=== PATIENT | female | born 1985 | race Caucasian/White ===

== ENCOUNTER 2019-07-22 16:51 | Emergency (ER) | payer OTHER, SELFPAY ==
--- NOTE | 2019-07-22 16:54 | ED.GENADULT ---
HPI - General Adult General Chief complaint: Upper Respiratory Infection Stated complaint: fever/sore throat/cough Time Seen by Provider: 07/22/19 16:54 Source: patient Mode of arrival: ambulatory Limitations: no limitations History of Present Illness HPI narrative: 34-year-old female patient presents to the [facility] with complaints of cold symptoms that started today. Patient states she has had some low-grade fevers and a scratchy throat and decided she come and get checked out states that she was bringing her kids in to be swabbed for strep. Denies any runny nose, chest pain, shortness breath, abdominal pain, nausea, vomiting or diarrhea. Patient denies any or breast-feeding at this time. Related Data Allergies Allergy/AdvReac Type Severity Reaction Status Date / Time No Known Allergies Allergy Mild Verified 07/22/19 17:03 Review of Systems Review of Systems: Narrative: CONSTITUTIONAL: Positive subjective low-grade fever, denies chills, or sweats. EYES: Denies visual changes, redness, or discharge. ENT: Denies rhinorrhea, congestion, positive sore throat, denies otalgia. CARDIOVASCULAR: Denies chest pain, palpitations, or edema. RESPIRATORY: Denies cough or dyspnea. GASTROINTESTINAL: Denies abdominal pain, nausea, vomiting, or diarrhea. GENITOURINARY: Denies dysuria or hematuria. SKIN: Denies rash or itching. MUSCULOSKELETAL: Denies back pain, joint pain, or myalgia. NEUROLOGIC: Denies headache, numbness, or weakness. PSYCHIATRIC: Denies anxiety or depression. [facility] Family History Family History Mother Hypertension Grandparent Family history of malignant neoplasm of breast Social History Social History Smoking status: Never smoker Second hand tobacco smoke exposure: No Alcohol intake: never Gender identity (if verbalized by the patient): Female Comments At the time of my signature I agree with nursing past medical history, surgical, social, and family history. There is no relevant family history pertinent to the presenting complaint. Exam Narrative: Exam Narrative: GENERAL: Well-appearing, well-nourished, and in no acute distress. HEAD: Normocephalic, atraumatic. No tenderness noted to frontal maxillary sinuses on palpation EYES: PERRLA and EOMI. ENT: Nares clear, no rhinorrhea or epistaxis. Mucous membranes moist. Posterior pharynx with slight erythema but no tonsil enlargement no exudates or lesions present. NECK: Supple. No lymphadenopathy CHEST: Clear to auscultation. No respiratory distress. HEART: Regular rate and rhythm. No murmur heard. Normal peripheral pulses. ABDOMEN: Soft, nontender, nondistended, normal active bowel sounds. EXTREMITIES: Normal range of motion. No edema. SKIN: Warm, dry, no rash. NEURO: No focal deficits. Alert and oriented x3. Course Vital Signs Vital signs: Vital Signs Temperature 37.4 C 07/22/19 17:00 Pulse Rate 94 07/22/19 17:00 Respiratory Rate 18 07/22/19 17:00 Blood Pressure 130/85 07/22/19 17:00 Pulse Oximetry 100 07/22/19 17:00 Temperature 37.4 C 07/22/19 17:00 Pulse Rate 94 07/22/19 17:00 Respiratory Rate 18 07/22/19 17:00 Blood Pressure 130/85 07/22/19 17:00 Pulse Oximetry 100 07/22/19 17:00 Vital signs reviewed. The patient has been informed that they may have pre-hypertension or Hypertension based on a BP reading in the department. I recommend that the patient call the primary care provider listed on their discharge instructions or a physician of their choice this week to arrange follow up for further evaluation of possible pre-hypertension or Hypertension Medical Decision Making Differential Diagnosis Differential Diagnosis: Differential diagnosis: Allergic rhinitis, chronic sinusitis, tonsillitis, acute sinusitis, infectious mononucleosis, seasonal influenza, pertussis, diphtheria, meningococcal dise
[2019-07-22 17:00] VITALS: BP 130/85; PULSE 94; RESP 18; TEMP 37.4; O2SAT 100
== END 2019-07-22 17:19 | disposition home or self-care (01) ==
LOC: EXPTROY 16:54
PROVIDERS: Emergency Provider Nurse Practitioner Family
DX: J02.0 Streptococcal pharyngitis (principal)
CPT/HCPCS: 87880; 99213; G0463

== ENCOUNTER 2020-10-14 09:04 | Outpatient (CLI) | payer OTHER, SELFPAY ==
--- NOTE | 2020-10-29 14:46 | WPDHOMESLEEP ---
Sleep Study - Home Unattended Date of Study: 10/14/20 Ordering Provider: Pema Arce, Interpreting Provider: Patience Short MD Home Sleep Study Type: Apnea Link Air Height: 1.55 m Weight: 98.883 kg Body Mass Index: 41.1 Neck Circumference (inches): 15 [place]: 14 Reason for Sleep Study Poor quality sleep, non-refreshing sleep with night time awakenings Sleep History Clarisa Graham is a 35 year old female with poor quality sleep. She has migraine headaches, takes topiramate and rizatriptan for this. She does not feel rested on waking. She frequently wakes up in the middle of the night. She sleeps with her mouth open. She wakes up suddenly and has a dry mouth. This has been going on for more than 2 years. She has difficulty falling asleep, she wakes up during the night and wakes up in the regroover hours. There is a family history with her mother and sister having a diagnosis of sleep apnea. She occasionally awakens from sleep feeling short of breath. She frequently awakens at night with heartburn, belching or coughing. She has been told that she snores and it is very common for this to be loud enough that others complain about it. She constantly has trouble sleep with a cold. She occasionally wakes up gasping for breath at night, occasionally has breathing problems at night observed by others. She constantly sweats excessively at night and notices her heart pounding or beating irregularly night. She never falls asleep during the day. She rarely falls asleep involuntarily. She occasionally falls asleep while driving but she does not drive often. She does not fall asleep while exerting physical effort. She does not have loss of muscle tone with strong emotion. She occasionally has daytime difficulties due to excessive sleepiness. 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 She rarely feels paralyzed on waking or falling asleep. She rarely has vivid dreamlike scenes upon awakening or falling asleep. She occasionally feels afraid to go to sleep. She frequently has nightmares. She occasionally remembers her dreams. She constantly has racing thoughts. She occasionally feels sad or depressed. She constantly has anxiety and muscular tension. She occasionally notices parts of her body jerking. She occasionally kicks at night and has crawling and aching feelings in her legs. She occasionally has leg pain at night. She occasionally has morning jaw pain. She rarely grinds her teeth during sleep. She frequently is bothered by pain during the day. She frequently is awakened by pain at night. She constantly wakes up feeling stiff in the morning with sore or achy muscles and pain in the neck and spine. She has depression, daily morning headaches, dizziness, fatigue, memory problems, concentration problems, and lack of libido. Normal bedtime is between 10:00 p.m. and 12 midnight, taking 2 hours to fall asleep. She typically wakes up 3 or more times during the night. She will go to urinate, stretch and reposition. It may take her a long while to return to sleep. She wakes in the morning by 6:00 a.m.. She estimates getting 5 hours of interrupted sleep at night. On the weekends, she has the same bedtime between 10:00 p.m. and midnight, however she gets recovery sleep, waking at 10:00 a.m. She does not generally take naps in the afternoon or evening. A short nap is not refreshing. She is usually drowsy in the morning for 3 hours or longer. She feels better in the evening compared other times of day. Habits: Never smoked tobacco. No caffeine, alcohol, or recreational drugs. [facility] Past Medical History Medical History (Updated 10/29/20 @ 14:56 by Patience Short MD) Anxiety and depression Heartburn History of COVID-19 Migraine headache Seasonal allergies Surgical History Surgical History (Updated 10/29/20 @ 14:52 by Patience Short MD) Previous section x 5 S/P partial hysterectomy Family History Family History
[2020-10-29 15:07] VITALS: BMI 41.1
== END 2020-10-15 11:56 | disposition home or self-care (01) ==
LOC: ANHCSM 09:05
PROVIDERS: Visit Provider Family Medicine
DX: G47.30 Sleep apnea, unspecified (principal)
CPT/HCPCS: 95806

== ENCOUNTER 2020-11-25 08:30 | Outpatient (CLI) | payer OTHER, SELFPAY ==
[2020-11-25 09:04] LABS: EDCOVIDSCREEN Negative (Negative)
== END 2020-11-25 08:31 | disposition home or self-care (01) ==
PROVIDERS: PCP Family Medicine; Visit Provider Internal Medicine Critical Care Medicine
DX: Z01.812 Encounter for preprocedural laboratory examination (principal); Z20.822 Contact with and (suspected) exposure to COVID-19
CPT/HCPCS: 87426; C9803

== ENCOUNTER 2020-11-25 08:39 | Outpatient (CLI) | payer OTHER, SELFPAY ==
--- NOTE | 2020-12-15 08:07 | WPDSLEEPSTUD ---
Sleep Study Date of Study: 11/25/20 Ordering Provider: Pema Arce, Interpreting Physician: Patience Short MD Sleep Study Type: Polysomnogram Height: 1.55 m Weight: 97.069 kg Body Mass Index: 40.4 Neck Circumference (inches): 17 [place]: 9 Reason for Sleep Study Hypersomnia, morning headaches, migraine headaches home sleep test 10/14/2020 with apnea-hypopnea index 4.2, lowest desaturation 88%; she presents for further evaluation. Sleep History Clarisa Graham is a 35 year old female with poor quality sleep. She has migraine headaches, takes topiramate and rizatriptan for this. She does not feel rested on waking. She frequently wakes up in the middle of the night. She sleeps with her mouth open. She wakes up suddenly and has a dry mouth. This has been going on for more than 2 years. 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 There is a family history of sleep disorders with her mother and sister having a diagnosis of sleep apnea. She occasionally awakens from sleep feeling short of breath. She frequently awakens at night with heartburn, belching or coughing. She has been told that she snores and it is very common for this to be loud enough that others complain about it. She constantly has trouble sleep with a cold. She occasionally wakes up gasping for breath at night, occasionally has breathing problems at night observed by others. She constantly sweats excessively at night and notices her heart pounding or beating irregularly night. She never falls asleep during the day. She rarely falls asleep involuntarily. She occasionally falls asleep while driving but she does not drive often. She does not fall asleep while exerting physical effort. She does not have loss of muscle tone with strong emotion. She occasionally has daytime difficulties due to excessive sleepiness. 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 She rarely feels paralyzed on waking or falling asleep. She rarely has vivid dreamlike scenes upon awakening or falling asleep. She occasionally feels afraid to go to sleep. She frequently has nightmares. She occasionally remembers her dreams. She constantly has racing thoughts. She occasionally feels sad or depressed. She constantly has anxiety and muscular tension. She occasionally notices parts of her body jerking. She occasionally kicks at night and has crawling and aching feelings in her legs. She occasionally has leg pain at night. She occasionally has morning jaw pain. She rarely grinds her teeth during sleep. She frequently is bothered by pain during the day. She frequently is awakened by pain at night. She constantly wakes up feeling stiff in the morning with sore or achy muscles and pain in the neck and spine. She has depression, daily morning headaches, dizziness, fatigue, memory problems, concentration problems, and lack of libido. Normal bedtime is between 10:00 p.m. and 12 midnight, taking 2 hours to fall asleep. She typically wakes up 3 or more times during the night. She will go to urinate, stretch and reposition. It may take her a long while to return to sleep. She wakes in the morning by 6:00 a.m.. She estimates getting 5 hours of interrupted sleep at night. On the weekends, she has the same bedtime between 10:00 p.m. and midnight, however she gets recovery sleep, waking at 10:00 a.m. She does not generally take naps in the afternoon or evening. A short nap is not refreshing. She is usually drowsy in the morning for 3 hours or longer. She feels better in the evening compared other times of day. Habits: Never smoked tobacco. No caffeine, alcohol, or recreational drugs. [facility] Past Medical History Medical History (Updated 12/15/20 @ 08:35 by Patience Short MD) Anxiety and depression Heartburn History of COVID-19 Migraine headache Seasonal allergies Surgical History Surgical History (Updated 10/29/20 @ 14:52 by Jin Franklin
[2020-12-15 08:10] VITALS: BMI 40.4
== END 2020-11-26 05:32 | disposition home or self-care (01) ==
LOC: ANHCSM 08:41
PROVIDERS: PCP Family Medicine; Visit Provider Family Medicine
DX: G47.10 Hypersomnia, unspecified (principal); R06.83 Snoring; G25.81 Restless legs syndrome
CPT/HCPCS: 87426; 95810; C9803

== ENCOUNTER 2021-01-14 13:29 | Emergency (ER) | payer OTHER, SELFPAY ==
[2021-01-14 13:41] VITALS: BP 124/74; PULSE 89; RESP 20; TEMP 36.4; O2SAT 100
--- NOTE | 2021-01-14 13:53 | ED.GENADULT ---
HPI - General Adult General Chief complaint: Shortness of Breath/Dyspnea Stated complaint: Difficulty breathing, elevated blood pressure Time Seen by Provider: 01/14/21 13:54 Source: patient and RN notes reviewed Mode of arrival: ambulatory Limitations: no limitations History of Present Illness HPI narrative: 36-year-old female presents with complaints of intermittent elevated blood pressure, elevated heart rate, and dizziness after receiving a injection of Amovig symptoms for the past 12 days. Garcia reports she received Amovig (due to history of migraines) from her neurologist office on 01/01/21 and symptoms started on 01/02/21 in which she called and instructed to call her PMD for further care. Appointment scheduled with PMD on 01/13/21 in which was cancelled 1 hour before her arrival per Clarisa. Clarisa reports increasing symptoms which includes elevated blood pressure as high as 146/51 and heart rate of 160 on 01/13/21 while sitting per Clarisa. No treatment. Exacerbating factors consist of changing position too fast, and certain movements. Relieving factors are sitting still. Denies ear pain, ear itching, ear trauma, trauma to head, syncopal episodes, altered vision, altered speech, confusion, or seizure activity. Denies numbness or tingling in extremities. Denies chest pain or dyspnea. Denies URI symptoms, fever, or chills. Tolerating p.o. intake well. Remains active. The patient reports she was diagnosed with COVID-08 August 2020. The patient reports she is not waiting for the results of a COVID-19 lab test. The patient reports she does not have weakness, fatigue, or myalgia. The patient reports he does not have a new or worsening cough or shortness of breath. The patient reports he does not have any rhinorrhea, congestion, loss of taste or smell, sore throat, and diarrhea. Denies recent traveling. Denies concerns for COVID-19 or exposures. At this time, the patient is not suspected of having COVID-19. Some parts of this dictation were generated by voice recognition software and may contain typographical and/or grammatical inaccuracies. Related Data Home Medications Medication Instructions Recorded Confirmed rizatriptan 10 mg PO .PRN PRN 01/14/21 01/14/21 topiramate 01/14/21 Allergies Allergy/AdvReac Type Severity Reaction Status Date / Time No Known Allergies Allergy Mild Verified 01/14/21 14:01 Review of Systems Review of Systems: CONSTITUTIONAL: Denies fever, chills, sweats. EYES: Denies visual changes, redness, discharge. ENT: Denies rhinorrhea, congestion, sore throat, otalgia. CARDIOVASCULAR: Denies chest pain, edema. Complaints of intermittent elevated blood pressure and palpitations. RESPIRATORY: Denies dyspnea, wheezing, cough. GASTROINTESTINAL: Denies abdominal pain, nausea, vomiting, diarrhea. SKIN: Denies lesions, itching, drainage. MUSCULOSKELETAL: Denies acute back pain, joint pain, or myalgia. NEUROLOGIC: Denies numbness or focal weakness. Complaints of intermittent dizziness. PSYCHIATRIC: Denies anxiety or depression. All systems reviewed & are unremarkable except as noted in HPI and below. [facility] Past Medical History Medical History Anxiety and depression Heartburn History of COVID-19 Hypersomnolence Maternal blood transfusion occurred with one of the per Clarisa Migraine headache Obesity Restless legs syndrome (RLS) Seasonal allergies Snoring Surgical History Surgical History Previous section x 5 S/P partial hysterectomy Family History Family History Mother Hypertension Grandparent Family history of malignant neoplasm of breast Social History Social History Smoking status: Never smoker Tobacco type: cigarettes Second h
--- NOTE | 2021-01-14 14:09 | ECG_ITS ---
Measurements Intervals [place] Rate: 89 P: 39 FL: 150 QRS: 45 QRSD: 86 T: 24 QT: 346 QTc: 423 Interpretive Statements SINUS RHYTHM BORDERLINE ST-T WAVE ABNORMALITY- ANTEROLAT/INF LEADS BASELINE ARTIFACT- II, III, AVF BORDERLINE ECG Electronically Signed On 01-14-2021 15:03:40 CDT by Pierre Yancey D.O.
[2021-01-14 14:22] VITALS: BP 115/70; PULSE 83
[2021-01-14 14:23] LABS: Glucose Point of Care 89 mg/dl (65-105)
--- NOTE | 2021-01-14 14:30 | PC.NURSE ---
1345-Pt denies lightheadedness at this time. Denies heart racing. No objective signs of dyspnea. Pt reports discomfort to mid upper chest with deep inspiration during exam.
[2021-01-14 14:32] VITALS: BP 115/76; BP 123/81; PULSE 103; PULSE 90
== END 2021-01-14 15:00 | disposition home or self-care (01) ==
PROVIDERS: Emergency Provider Nurse Practitioner Family; PCP Family Medicine
DX: F41.9 Anxiety disorder, unspecified (principal); R12 Heartburn; Z86.16 Personal history of COVID-19; E66.9 Obesity, unspecified; Z68.41 Body mass index [BMI] 40.0-44.9, adult; G25.81 Restless legs syndrome
CPT/HCPCS: 82948; 93005; 99213; G0463

== ENCOUNTER 2021-02-23 08:22 | Observation (INO) | payer OTHER, SELFPAY ==
[2021-02-23] VITALS (19 sets, daily range): BP systolic 100–120; BP diastolic 60–80; PULSE 90–122; RESP 18–33; TEMP 36.8–37.4; O2SAT 97–100; BMI 38.3
--- NOTE | ~2021-02-23 | CT_ITS ---
EXAMINATION: CTA chest PE protocol DATE: 02/23/2021 11:26 INDICATION: Shortness of breath for 2 weeks. Cough, fever TECHNIQUE: Computed tomography angiography (CTA) of the chest was performed with 100 mL Omnipaque-350 intravenous contrast timed to evaluate the pulmonary arteries. Coronal maximum intensity projection 3D-reconstructions were created by the technologist. Automated exposure control and iterative reconst ruction technique were employed. Exam dose: 472.97 mGy-cm total exam DLP. COMPARISON: 02/2021 2 view chest FINDINGS: There is diagnostic contrast enhancement of the pulmonary arteries. There is prominent pulm onary embolism involving the left lower lobe. No thoracic aortic aneurysm or hilar or mediastinal mass lesion. There are patchy infiltrates scattered in both lungs, involving all lobes, most prominent in the lowe r lobes, left greater than right, consistent with bilateral pneumonia, likely Covid 19. There is mild hilar and mediastinal lymphadenopathy, likely reactive due bilateral pneumonia. Normal heart size. No pericardial or pleural effusion. No pneumothorax. Small sliding hiatal hernia. Included skeletal structures are unremarkable; no suspicious osteolytic or osteoblastic lesions. IMPRESSION: Left lower lobe pulmonary embolism Bilateral pneumonia, likely Covid 19, with probable reactive hilar and mediastinal adenopathy Robin telephoned the report including left lower lobe pulmonary embolism on 02/23/2021 at 1143 hours to emergency room Physician [employer]er Teresa. Reviewed, dictated and finalized at [facility]. Reviewed, dictated and finalized at location [facility]. IMPRESSION: Left lower lobe pulmonary embolism Bilateral pneumonia, likely Covid 19, with probable reactive hilar and mediasti nal adenopathy Robin telephoned the report including left lower lobe pulmonary embolism on 02/23 at 1143 hours to emergency room Physician Marine [employer] Assembler Teresa.
--- NOTE | ~2021-02-23 | XR_ITS ---
EXAMINATION: XR chest 2V DATE: 02/23/2021 09:02 INDICATION: Shortness of breath, cough and left-sided chest pain. TECHNIQUE: PA and lateral views of the chest were obtained. COMPARISON: Chest radiograph dated 09/02/2013 FINDINGS: Bilateral peripheral and lower lung predominant scattered patchy airspace opacities consistent with p neumonia. No pleural effusion or pneumothorax. The cardiomediastinal silhouette is normal. Mild thora cic spondylosis. IMPRESSION: 1. Patchy bilateral lung disease suspicious for pneumonia with appearance typical for COVID. Reviewed, dictated and finalized at location [facility]. IMPRESSION: 1. Patchy bilateral lung disease suspicious for pneumonia with appearance typic al for COVID.
--- NOTE | ~2021-02-23 | US_ITS ---
EXAMINATION: US venous doppler [facility] EXAM DATE: 02/23/2021 17:42 INDICATION: Pulmonary embolism. TECHNIQUE: Multiple grayscale, color flow and Doppler images of the lower extremity deep venous syste ms bilaterally were obtained and reviewed. Comparison is made to prior examination from 01/29/2014. FINDINGS: Right side: The right common femoral, femoral and profunda veins demonstrate normal color flow, respi ratory variation, augmentation and compressibility. Compressibility, color flow confirmed within the right popliteal, posterior tibial, peroneal, and greater saphenous veins. Left side: The left common femoral, femoral and profunda veins demonstrate normal color flow, respira tory variation, augmentation and compressibility. Compressibility, color flow confirmed within the l eft popliteal, posterior tibial, peroneal, and greater saphenous veins. IMPRESSION: 1. No lower extremity deep venous thrombosis bilaterally. Reviewed, dictated and finalized at location A.
--- NOTE | 2021-02-23 08:41 | ECG_ITS ---
Measurements Intervals [place] Rate: 107 P: 44 FL: 142 QRS: 37 QRSD: 89 T: -86 QT: 319 QTc: 427 Interpretive Statements SINUS TACHYCARDIA BORDERLINE ST-T WAVE ABNORMALITY- DIFFUSE LEADS BASELINE ARTIFACT- I, III, AVR, AVL, AVF, V3-V6 ABNORMAL ECG Electronically Signed On 02-23-2021 11:26:53 CDT by Pierre Yancey D.O.
--- NOTE | 2021-02-23 08:49 | PC.NURSE ---
Pt resting on stretcher, awaiting xray
[2021-02-23 08:54] LABS: Basophils Percent Auto 0.3 % (0.2-1.2); Eosinophils Absolute Auto 0.1 K/mm3 (0-0.3); Eosinophils Percent Auto 0.9 % (0-4.4); Hematocrit 38.4 % (37.0-47.0); Hemoglobin 12.6 g/dL (12.0-15.0); Immature Granulocyte Absolute 0.04 K/mm3 (0.00-0.031); Immature Granulocyte Percent A 0.4 % (0-0.5); Lymphocytes Absolute Auto 2.93 K/mm3 (0.9-3.2); Lymphocytes Percent Auto 30.1 % (18.3-44.2); Mean Corpuscular HGB Conc 32.8 g/dl (32-36); Mean Corpuscular Hemoglobin 28.4 pg (26-34); Mean Corpuscular Volume 86.5 fl (80-100); Mean Platelet Volume 9.1 fl (7.4-10.4); Monocytes Absolute Auto 0.8 K/mm3 (0.1-0.6); Monocytes Percent Auto 7.8 % (2.6-8.5); Neutrophils Absolute Auto 5.9 K/mm3 (1.3-6.7); Neutrophils Percent Auto 60.5 % (45.5-73.1); Platelet Count Result 390 k/mm3 (150-375); Red Blood Count 4.44 M/mm3 (4.2-5.4); Red Cell Distribution Width 12.8 % (11.5-14.5); White Blood Count 9.7 K/mm3 (4.5-10.0)
[2021-02-23 09:02] LABS: Anion Gap 9 mmol/L (8-16); Blood Urea Nitrogen 7 mg/dL (7-17); Calcium 9.8 mg/dL (8.4-10.2); Carbon Dioxide 23 mmol/L (22-30); Chloride 106 mmol/L (98-107); Estimated CRCL calculation 112 ml/min; Estimated Glomerular Filt Rate > 60; Glucose 128 mg/dL (65-110); Potassium 3.4 mmol/L (3.4-5.0); Sodium 138 mmol/L (137-145)
--- NOTE | 2021-02-23 09:46 | PC.NURSE ---
provider at bedside
[2021-02-23 09:48] LABS: INR 1.1; Prothrombin Time 14.4 Seconds (11.1-14.7)
[2021-02-23 09:49] LABS: Partial Thromboplastin Time 27.6 SECONDS (22.3-36.8)
[2021-02-23 09:57] LABS: Alanine Aminotransferase 25 U/L (4-35); Albumin Level 4.1 g/dL (3.5-5.1); Alkaline Phosphatase 60 U/L (38-126); Aspartate Amino Transferase 25 U/L (14-36); Bilirubin,Total 0.6 mg/dL (0.2-1.3)
[2021-02-23] MEDS: ALBUTEROL SULFATE (*SP) AEROSOL 1 PUFF 4 PUFF INHALATION (09:58)
[2021-02-23 10:03] LABS: NT Pro B Type Natriuretic Pept 30 pg/mL (5-100)
--- NOTE | 2021-02-23 10:06 | ED.SOB ---
HPI - SOB/Dyspnea General Chief Complaint: Shortness of Breath/Dyspnea <GERTRUDE Lopez Last Filed: 02/23/21 12:51> Stated Complaint: difficulty breathing <GERTRUDE Lopez Last Filed: 02/23/21 12:51> Time Seen by Provider: 02/23/21 09:09 <GERTRUDE Lopez Last Filed: 02/23/21 12:51> Source: patient <GERTRUDE Lopez Last Filed: 02/23/21 12:51> Mode of arrival: ambulatory <GERTRUDE Lopez Last Filed: 02/23/21 12:51> Limitations: no limitations <GERTRUDE Lopez Last Filed: 02/23/21 12:51> History of Present Illness HPI Narrative: This is a 36-year-old female that presents to the emergency department for shortness of breath since yesterday. Reports over the last couple of weeks she has been having fevers, cough, congestion. Reports she still has a lingering cough. Yesterday she also started to feel short of breath. She gets pain in the left side of her chest, mostly with coughing. She has not been Covid vaccinated. Denies recent travel or surgery, or lower extremity edema. <GERTRUDE Lopez Last Filed: 02/23/21 12:51> Related Data Home Medications: Home Medications Medication Instructions Recorded Confirmed rizatriptan 10 mg PO .PRN PRN 01/14/21 02/02/21 topiramate 01/14/21 02/02/21 <GERTRUDE Lopez Last Filed: 02/23/21 12:51> Allergies/Adverse Reactions: Allergies Allergy/AdvReac Type Severity Reaction Status Date / Time No Known Allergies Allergy Mild Verified 02/02/21 14:09 <GERTRUDE Lopez Last Filed: 02/23/21 12:51> Review of Systems Review of Systems: CONSTITUTIONAL: Reports fever ENT: Reports rhinorrhea, congestion CARDIOVASCULAR: Reports chest pain. Denies edema. RESPIRATORY: Reports cough and dyspnea. <GERTRUDE Lopez Last Filed: 02/23/21 12:51> All systems reviewed & are unremarkable except as noted in HPI and below <Teresa Luong PA-C - Last Filed: 02/23/21 12:51> [facility] Past Medical History Medical History: Medical History Anxiety and depression Heartburn History of COVID-19 Hypersomnolence Maternal blood transfusion occurred with one of the per Clarisa Migraine headache Obesity Restless legs syndrome (RLS) Seasonal allergies Snoring <GERTRUDE Lopez Last Filed: 02/23/21 12:51> Surgical History Surgical History: Surgical History Previous section x 5 S/P partial hysterectomy <GERTRUDE Lopez Last Filed: 02/23/21 12:51> Family History Family History: Family History Mother Hypertension Grandparent Family history of malignant neoplasm of breast <GERTRUDE Lopez Last Filed: 02/23/21 12:51> Social History Social History: Social History Smoking status: Never smoker Second hand tobacco smoke exposure: No Alcohol intake: never Substance use: never Substance use type: does not use Gender identity (if verbalized by the patient): Female Sexual Orientation (if Verbalized by the Patient): Straight or Heterosexual <GERTRUDE Lopez Last Filed: 02/23/21 12:51> Exam Narrative: GENERAL: Well-appearing, obese, and in no acute distress. HEAD: Normocephalic, atraumatic. EYES: EOMI. ENT: Nares clear, no rhinorrhea or epistaxis. Mucous membranes moist. Oropharynx without tonsillar hypertrophy exudate or other lesions. Bilateral TMs pearly [place] non-bulging NECK: Supple. No adenopathy or masses. CHEST: Clear to auscultation. No respiratory distress. No wheezes rales or rhonchi HEART: Regular rate and rhythm. No murmur heard. Normal peripheral pulses. EXTREMITIES: Normal range of motion. No edema. SKIN: Warm, dry, no rash. NEURO: No focal deficits. Alert and
[2021-02-23 10:16] LABS: Troponin I < 0.012 ng/mL (0.000-0.034)
[2021-02-23 10:58] LABS: D Dimer 1.55 ug/mL (<0.48)
--- NOTE | 2021-02-23 11:03 | PC.NURSE ---
Report given to BREANN Liang at this time. She has assumed pt care. Pt resting on stretcher, calm and cooperative, a&ox4.
[2021-02-23] MEDS: ENOXAPARIN 100 MG/ML SYRINGE 90 MG SUB-Q ×2 (12:21→22:03)
--- NOTE | 2021-02-23 14:30 | PM.IMHP ---
H&P: HPI History of Present Illness Date/Time: 02/23/21 14:30 Chief Complaint: Shortness of breath. Narrative: This is a 36-year-old female with migraine headaches who presented to the emergency department earlier today from home for evaluation of shortness of breath. She has not felt well since February 05 when she developed a ?full-blown sinus infection? with a mild nonproductive cough as well as fevers up to 102? F. Since that time she has had some mild shortness of breath with exertion though her shortness of breath has gotten quite a bit worse over the past 2 days. Additionally she has developed left-sided pleuritic chest pain in the last day or so. In the emergency department she was found to have a left lower lobe pulmonary embolism as well as bilateral pneumonia felt to be secondary to COVID-19, and in fact her SARS-CoV-2 PCR did come back positive this evening. She had COVID earlier on in the year and has not been vaccinated. Her 4 children have had similar symptoms though they have thus far attributed them to hayfever causing sinus infections. No syncope or near syncope. She denies exertional chest pain. No palpitations but her heart has been beating a bit faster than usual. She denies nausea, vomiting, and diarrhea. No lower extremity edema, calf pain, or tenderness. Review of Systems Review of Systems: Twelve systems were reviewed with pertinent positives and negatives as per HPI. Except as documented, all other systems were reviewed and are negative. [facility] Past Medical History Medical History (Updated 02/23/21 @ 20:44 by Cailin Luo PA-C) Anxiety and depression Heartburn History of COVID-19 Migraine headache Restless legs syndrome (RLS) Seasonal allergies Surgical History Surgical History (Updated 02/23/21 @ 20:41 by Cailin Luo PA-C) History of partial hysterectomy Previous section x 5 Family History Family History Mother Hypertension Grandparent Family history of malignant neoplasm of breast Social History Social History (Updated 02/23/21 @ 20:42 by Cailin Luo PA-C) Social History: Surrogate decision maker: Rashida Tay, sister. Code status: Full code. Smoking status: Never smoker Second hand tobacco smoke exposure: No Alcohol intake: never Substance use: never Substance use type: does not use Additional living arrangements comments: Lives in [place] with her 4 children. Additional occupation/education comments: [employer] for [employer]. Meds Home Medications and Allergies Home Medications Medication Instructions Recorded Confirmed Type topiramate 75 mg PO BID 01/14/21 02/23/21 History Allergies Allergy/AdvReac Type Severity Reaction Status Date / Time No Known Allergies Allergy Mild Verified 02/02/21 14:09 Vital Signs Vital Signs - 24 hr 02/23/21 08:37 02/23/21 08:38 02/23/21 08:42 Temperature Pulse Rate 107 H Respiratory Rate Blood Pressure 116/72 Pulse Oximetry 99 97 100 02/23/21 08:45 02/23/21 08:46 02/23/21 09:00 Temperature 98.5 F Pulse Rate 111 H 102 H 100 Respiratory Rate 33 H 18 22 H Blood Pressure 120/76 Pulse Oximetry 98 100 98 02/23/21 09:02 02/23/21 09:15 02/23/21 09:30 Temperature Pulse Rate 99 98 98 Respiratory Rate 23 H 24 H 20 Blood Pressure 100/69 Pulse Oximetry 98 99 99 02/23/21 09:31 02/23/21 09:32 02/23/21 10:24 Temperature Pulse Rate 93 90 122 H Respiratory Rate 23 H 24 H 26 H Blood Pressure 106/68 Pulse Oximetry 98 98 98 02/23/21 11:02 02/23/21 12:00 02/23/21 13:00 Temperature Pulse Rate 111 H 110 H 108 H Respiratory Rate 24 H 26 H 26 H Blood Pressure 110/72 108/70 112/80 Pulse Oximetry 98 99 100 02/23/21 14:00 02/23/21 15:10 02/23/21 16:00 Temperature 98.3 F 99.2 F Pulse Rate 106 H 106 H 118 H Respiratory Rate 26 H 26 H 24 H Blood Pressure 112/76 108/70 109/60 Puls
--- NOTE | 2021-02-23 15:31 | ADMGEN ---
This patient, Clarisa Graham, was admitted to [facility] Surg Room 332-01. Patient/family oriented to hospital policies and general routines including ID bracelet, bed and alarms, visiting hours, pain management, procedures, bathroom and other care routines, personal items, smoking policy, room service/diet, and visiting hours. Information on how to activate the Rapid Response Team has been discussed. Patient/Family are encouraged to report perceived risks to care and to ask questions if they do not understand what they are told or what they should do.
[2021-02-23 16:47] LABS: SARS-CoV-2 RNA PCR Positive
[2021-02-23] MEDS: ACETAMINOPHEN 325 MG TABLET 650 MG PO (21:44)
[2021-02-23] MEDS: TOPIRAMATE 25 MG TABLET 75 MG PO (22:03)
[2021-02-24] VITALS: PULSE 95
[2021-02-24] MEDS: ACETAMINOPHEN 325 MG TABLET 650 MG PO (03:28)
[2021-02-24 04:00] VITALS: BP 110/64; PULSE 97; PULSE 98; RESP 18; TEMP 36.4; O2SAT 92
[2021-02-24 07:50] LABS: Alanine Aminotransferase 20 U/L (4-35); Albumin Level 3.7 g/dL (3.5-5.1); Alkaline Phosphatase 58 U/L (38-126); Anion Gap 9 mmol/L (8-16); Aspartate Amino Transferase 22 U/L (14-36); Bilirubin,Total 0.6 mg/dL (0.2-1.3); Blood Urea Nitrogen 6 mg/dL (7-17); CRP 14.2 mg/dL (<1.0); Carbon Dioxide 22 mmol/L (22-30); Chloride 108 mmol/L (98-107); Estimated CRCL calculation 133 ml/min; Estimated Glomerular Filt Rate > 60; Glucose 104 mg/dL (65-110); Lactate Dehydrogenase 420 U/L (313-618); Magnesium 2.1 mg/dL (1.6-2.3); Potassium 3.4 mmol/L (3.4-5.0); Sodium 139 mmol/L (137-145)
[2021-02-24 08:00] VITALS: BP 111/67; PULSE 106; PULSE 82; RESP 20; TEMP 36.5; O2SAT 95
[2021-02-24] MEDS: TOPIRAMATE 25 MG TABLET 75 MG PO ×2 (09:53→20:22)
[2021-02-24] MEDS: ENOXAPARIN 100 MG/ML SYRINGE 90 MG SUB-Q (09:54)
[2021-02-24] MEDS: HYDROcodone/acetaminophen (*CRX) 5-325 MG TABLET 1 TAB PO ×3 (09:54→20:22)
[2021-02-24 12:00] VITALS: BP 115/66; PULSE 114; PULSE 96; RESP 18; TEMP 36.1; O2SAT 97
[2021-02-24 16:00] VITALS: BP 91/55; PULSE 108; PULSE 96; RESP 16; TEMP 37.1; O2SAT 97
--- NOTE | 2021-02-24 16:00 | PM.IMPN ---
Progress Note: A&P Assessment and Plan (1) Left pulmonary embolus: Code(s): I26.99 - Other pulmonary embolism without acute cor pulmonale Status: Acute Assessment and Plan: Was on Lovenox Will transition to Eliquis (2) Pneumonia due to COVID-19 virus: Code(s): U07.1 - COVID-19; J12.82 - Pneumonia due to coronavirus disease 2019 Status: Acute Assessment and Plan: The patient has not felt well since 02/05/2021 tested positive for COVID-19 with evidence of pneumonia related to the same (3) Migraine headache: Code(s): G43.909 - Migraine, unspecified, not intractable, without status migrainosus Status: Inactive Additional Plan d/c home tomorrow if doing well Subjective Date/time seen: 02/24/21 16:00 Interval history: pt seen and evaluated; no acute events overnight; continue to feel SOB, but sats >95% on RA; no new complaints Review of Systems Review of Systems: All systems reviewed & are unremarkable except as noted in HPI and below Exam Const: General: no acute distress, alert and awake Orientation/consciousness: patient oriented x3 HENMT: Head: normocephalic and atraumatic Ears: hearing grossly normal bilaterally and external ears normal Face and sinus: face symmetric Mouth: Yes Normal oral and palatal mucosa present Eyes: EOM: EOMs intact bilaterally Neck: Neck: full ROM, trachea midline and no JVD Chest: Chest palpation & inspection: normal inspection of the chest Resp: Effort & Inspection: normal respiratory effort Cardio: Jugular venous distension: no JVD Rate: regular rate GI: Inspection: normal to inspection Auscultation: normal bowel sounds : General: Yes no CVA tenderness Skin: General skin exam: normal color Rashes: no rashes Neuro: General: patient oriented x3 and CN's II-XI intact bilaterally Cranial nerves: Yes Equal, round and reactive pupils present Speech: normal speech Psych: Appearance: grossly normal Affect: normal affect Judgement: Good judgement present (Psych) Objective Data Vital Signs Vital Signs: Vital Signs - 24 hr 02/23/21 20:00 02/24/21 00:00 02/24/21 04:00 Temperature 37.4 C 36.4 C L Pulse Rate 112 H 95 98 Respiratory Rate 18 18 Blood Pressure 112/62 110/64 Pulse Oximetry 98 92 02/24/21 08:00 02/24/21 12:00 Temperature 36.5 C 36.1 C L Pulse Rate 82 114 H Respiratory Rate 20 18 Blood Pressure 111/67 115/66 Pulse Oximetry 95 97 Intake/Output Intake/Output: Intake & Output 02/21/21 02/22/21 02/23/21 02/24/21 23:59 23:59 23:59 23:59 Intake Total 640 930 Balance 640 930 Meds/Results Medications: Active Medications Generic Name Dose Route Start Last Admin Trade Name Freq PRN Reason Stop Dose Admin Acetaminophen 650 mg 02/23/21 20:47 02/24/21 03:28 Acetaminophen 325 Mg Tablet PO 650 mg Q6H PRN Administration Mild Pain (1-3) or Fever Hydrocodone Bitart/Acetaminophen 1 tab 02/24/21 13:50 02/24/21 14:27 Hydrocodone/Acetaminophen (*Crx) 5-325 Mg Tablet PO 1 tab Q4H PRN Administration Pain Rated 7-10 Albuterol 2 puff 02/23/21 20:47 Albuterol Sulfate (*Sp) Aerosol 1 Puff INHALATION QIDRT PRN Shortness Of Breath Enoxaparin Sodium 90 mg 02/23/21 21:00 02/24/21 09:54 Enoxaparin 100 Mg/Ml Syringe SUB-Q 90 mg Q12HR CARLEY Administration Topiramate 75 mg 02/23/21 21:00 02/24/21 09:53 Topiramate 25 Mg Tablet PO 75 mg Q12HR CARLEY Administration Radiology Results: ITS Impressions Chest X-Ray 02/23/21 09:21 IMPRESSION: 1. Patchy bilateral lung disease suspicious for pneumonia with appearance typical for COVID. Chest CTA 02/23/21 11:31 IMPRESSION: Left lower lobe pulmonary embolism Bilateral pneumonia, likely Covid 19, with probable reactive hilar and mediastinal adenopathy Hill telephoned the report including left lower lobe pulmonary embolism on 02/23/2021 at 1143 hours to emergency room Physician Dago
[2021-02-24 20:00] VITALS: BP 99/66; PULSE 105; PULSE 97; RESP 20; TEMP 37.2; O2SAT 98
[2021-02-24] MEDS: APIXABAN 5 MG TABLET 10 MG PO (20:22)
[2021-02-25] VITALS: BP 113/68; PULSE 111; PULSE 98; RESP 18; TEMP 36.3; O2SAT 96
[2021-02-25] MEDS: HYDROcodone/acetaminophen (*CRX) 5-325 MG TABLET 1 TAB PO ×4 (00:26→22:41)
[2021-02-25 04:00] VITALS: BP 102/59; PULSE 92; RESP 18; TEMP 36.6; O2SAT 99
[2021-02-25 08:00] VITALS: BP 109/62; PULSE 88; PULSE 90; RESP 18; TEMP 36.4; O2SAT 100
[2021-02-25] MEDS: TOPIRAMATE 25 MG TABLET 75 MG PO ×2 (08:27→21:41)
[2021-02-25] MEDS: APIXABAN 5 MG TABLET 10 MG PO ×2 (08:27→21:41)
--- NOTE | 2021-02-25 11:48 | PM.IMPN ---
Progress Note: A&P Assessment and Plan (1) Left pulmonary embolus: Code(s): I26.99 - Other pulmonary embolism without acute cor pulmonale Status: Acute Assessment and Plan: Was on Lovenox Continue with Eliquis Supportive care (2) Pneumonia due to COVID-19 virus: Code(s): U07.1 - COVID-19; J12.82 - Pneumonia due to coronavirus disease 2019 Status: Acute Assessment and Plan: The patient has not felt well since 02/05/2021 tested positive for COVID-19 with evidence of pneumonia related to the same Home O2 assessment (3) Migraine headache: Code(s): G43.909 - Migraine, unspecified, not intractable, without status migrainosus Status: Inactive Assessment and Plan: Supportive care Analgesics Additional Plan d/c home tomorrow if pain controlled Subjective Date/time seen: 02/25/21 11:48 Interval history: 10/5 pt seen and evaluated; no acute events overnight; continue to feel SOB, but sats >95% on RA; no new complaints / pt seen and evaluated; complains of SOB, CLARK and some left sided thoracic pain; on RA; will have respiratory perform ambulatory O2 assessment Review of Systems Review of Systems: All systems reviewed & are unremarkable except as noted in HPI and below Exam Const: General: no acute distress, alert and awake Orientation/consciousness: patient oriented x3 HENMT: Head: normocephalic and atraumatic Ears: hearing grossly normal bilaterally and external ears normal Face and sinus: face symmetric Mouth: Yes Normal oral and palatal mucosa present Eyes: Pupils: Equal, round and reactive pupils present EOM: EOMs intact bilaterally Neck: Neck: full ROM, trachea midline and no JVD Chest: Chest palpation & inspection: normal inspection of the chest Resp: Effort & Inspection: normal respiratory effort Cardio: Jugular venous distension: no JVD Rate: regular rate GI: Inspection: normal to inspection Auscultation: normal bowel sounds : General: Yes no CVA tenderness Back/Spine/Pelvis: Back: no CVA tenderness Skin: General skin exam: normal color Rashes: no rashes Neuro: General: patient oriented x3 and CN's II-XI intact bilaterally Cranial nerves: Yes Equal, round and reactive pupils present Speech: normal speech Psych: Appearance: grossly normal Affect: normal affect Judgement: Good judgement present (Psych) Objective Data Vital Signs Vital Signs: Vital Signs - 24 hr 02/24/21 12:00 02/24/21 16:00 02/24/21 20:00 Temperature 36.1 C L 37.1 C 37.2 C Pulse Rate 114 H 96 97 Respiratory Rate 18 16 20 Blood Pressure 115/66 91/55 L 99/66 L Pulse Oximetry 97 97 98 02/25/21 00:00 02/25/21 04:00 02/25/21 08:00 Temperature 36.3 C L 36.6 C 36.4 C Pulse Rate 98 92 88 Respiratory Rate 18 18 18 Blood Pressure 113/68 102/59 L 109/62 Pulse Oximetry 96 99 100 Intake/Output Intake/Output: Intake & Output 02/22/21 02/23/21 02/24/21 02/25/21 23:59 23:59 23:59 23:59 Intake Total 640 1670 1280 Balance 640 1670 1280 Meds/Results Medications: Active Medications Generic Name Dose Route Start Last Admin Trade Name Freq PRN Reason Stop Dose Admin Acetaminophen 650 mg 02/23/21 20:47 02/24/21 03:28 Acetaminophen 325 Mg Tablet PO 650 mg Q6H PRN Administration Mild Pain (1-3) or Fever Hydrocodone Bitart/Acetaminophen 1 tab 02/24/21 13:50 02/25/21 08:26 Hydrocodone/Acetaminophen (*Crx) 5-325 Mg Tablet PO 1 tab Q4H PRN Administration Pain Rated 7-10 Albuterol 2 puff 02/23/21 20:47 Albuterol Sulfate (*Sp) Aerosol 1 Puff INHALATION QIDRT PRN Shortness Of Breath Apixaban 10 mg 02/24/21 21:00 02/25/21 08:27 Apixaban 5 Mg Tablet PO 03/03/21 09:01 10 mg Q12HR CARLEY Administration Apixaban 5 mg 03/03/21 21:00 Apixaban 5 Mg Tablet PO Q12HR CARLEY Topiramate 75 mg 02/23/21 21:00 02/25/21 08:27 Topiramate 25 Mg Tablet PO 75 mg Q12HR CARLEY Administration Rad
[2021-02-25 12:00] VITALS: BP 100/56; PULSE 83; PULSE 90; RESP 16; TEMP 36.1; O2SAT 98
[2021-02-25] MEDS: ACETAMINOPHEN 325 MG TABLET 650 MG PO (13:30)
[2021-02-25 16:00] VITALS: BP 101/58; PULSE 104; RESP 16; TEMP 36.1; O2SAT 100
[2021-02-25] MEDS: HYDROcodone/acetaminophen (*CRX) 7.5-325 MG TABLET 1 TAB PO (17:43)
[2021-02-25 20:00] VITALS: BP 103/64; PULSE 102; RESP 16; TEMP 36.2; O2SAT 100
[2021-02-26] VITALS: BP 107/65; PULSE 98; RESP 18; TEMP 36.6; O2SAT 98
[2021-02-26] MEDS: HYDROcodone/acetaminophen (*CRX) 5-325 MG TABLET 1 TAB PO ×2 (03:23→09:08)
[2021-02-26 04:00] VITALS: BP 105/59; PULSE 93; RESP 18; TEMP 36.5; O2SAT 96
[2021-02-26] MEDS: TOPIRAMATE 25 MG TABLET 75 MG PO (09:09)
[2021-02-26] MEDS: APIXABAN 5 MG TABLET 10 MG PO (09:10)
[2021-02-26 10:00] VITALS: PULSE 104; O2SAT 96
[2021-02-26 10:05] VITALS: PULSE 122; O2SAT 97
[2021-02-26 10:15] VITALS: PULSE 106; O2SAT 97
--- NOTE | 2021-02-26 10:20 | HOMEO2EVAL ---
Evaluation was performed at [facility] Home Oxygen Evaluation RC: Home Oxygen (O2) Evaluation Start: 02/25/21 13:19 Freq: ONCE Status: Active Protocol: RPE Activity Type Activity Date Activity User E-Sign Co-Sign Detail Recorded Client Recorded Date Recorded By Document 02/26/21 10:00 [email or web address] [email or web address] 02/26/21 10:20 DJO Document 02/26/21 10:05 [email or web address] [email or web address] 02/26/21 10:20 DJO Document 02/26/21 10:15 [email or web address] [email or web address] 02/26/21 10:20 DJO 02/26/21 02/26/21 02/26/21 10:00 10:05 10:15 Home O2 Evaluation Test Phase Resting Exercise Resting Oxygen Delivery Room Air Room Air Room Air Pulse Oximetry (90-100 %) 96 97 97 Pulse Rate (60-100 beats/min) 104 H 122 H 106 H Activity Tolerance Good Treatment Charges O2 Evaluation - Inpatient
--- NOTE | 2021-02-26 10:20 | PCRCNOTE ---
HOME O2 EVAL COMPLETE, NO REQUIREMENTS.
--- NOTE | 2021-02-26 10:28 | PM.DS ---
DS: Admitting Diagnosis Discharge Date 02/26/2021 Admitting Diagnosis Left pulmonary embolus DS: Discharge Diagnosis Discharge Diagnosis (1) Left pulmonary embolus: Code(s): I26.99 - Other pulmonary embolism without acute cor pulmonale Status: Acute Assessment and Plan: Was on Lovenox Continue with Eliquis Supportive care (2) Pneumonia due to COVID-19 virus: Code(s): U07.1 - COVID-19; J12.82 - Pneumonia due to coronavirus disease 2019 Status: Acute Assessment and Plan: The patient has not felt well since 02/05/2021 tested positive for COVID-19 with evidence of pneumonia related to the same Home O2 assessment (3) Migraine headache: Code(s): G43.909 - Migraine, unspecified, not intractable, without status migrainosus Status: Inactive Assessment and Plan: Supportive care Analgesics DS: Summary Hospital Course Hospital Course: This is a 36-year-old female with migraine headaches who presented to the emergency department earlier today from home for evaluation of shortness of breath. She has not felt well since February 05 when she developed a ?full-blown sinus infection? with a mild nonproductive cough as well as fevers up to 102? F. Since that time she has had some mild shortness of breath with exertion though her shortness of breath has gotten quite a bit worse over the past 2 days. Additionally she has developed left-sided pleuritic chest pain in the last day or so. In the emergency department she was found to have a left lower lobe pulmonary embolism as well as bilateral pneumonia felt to be secondary to COVID-19, and in fact her SARS-CoV-2 PCR did come back positive this evening. She had COVID earlier on in the year and has not been vaccinated. Her 4 children have had similar symptoms though they have thus far attributed them to hayfever causing sinus infections. No syncope or near syncope. She denies exertional chest pain. No palpitations but her heart has been beating a bit faster than usual. She denies nausea, vomiting, and diarrhea. No lower extremity edema, calf pain, or tenderness. She was admitted for observation. She has not required any oxygen through out her stay. She was treated with supportive care for her COVID. Lovenox 1 milligram/kilogram b.i.d. was initiated, initially she will be discharged on Eliquis. She is hemodynamically stable and her left sided chest pain is improving. She will be discharged home today. Time Spent with Patient Time attestation: Total time spent providing and/or coordinating discharge services: Time spent: Greater than 30 minutes Exam Const: General: no acute distress, alert and awake Orientation/consciousness: patient oriented x3 HENMT: Head: normocephalic and atraumatic Ears: hearing grossly normal bilaterally Face and sinus: face symmetric Mouth: Yes Normal oral and palatal mucosa present Eyes: EOM: EOMs intact bilaterally Neck: Neck: full ROM, trachea midline and no JVD Chest: Chest palpation & inspection: normal inspection of the chest Resp: Effort & Inspection: normal respiratory effort Cardio: Jugular venous distension: no JVD Rate: regular rate GI: Inspection: normal to inspection Auscultation: normal bowel sounds : General: Yes no CVA tenderness Skin: General skin exam: normal color Rashes: no rashes Neuro: General: patient oriented x3 and CN's II-XI intact bilaterally Speech: normal speech Psych: Appearance: grossly normal Affect: normal affect Judgement: Good judgement present (Psych) Discharge Plan Discharge Attending physician on discharge: Gail Weaver Consulting providers: Teresa Luong ; Carmine Figueroa ; Orestes Sterling ; Cailin Luo ; Pierre Yancey ; Dio Kelly ; Bev Saldana Discharging Clinician: Bev Saldana Patient Disposition: Home, Self-Care Activity: as tolerated Diet: heart healthy Patient Instructions: Antibiotic Form, Pulmo
== END 2021-02-26 11:21 | disposition home or self-care (01) ==
LOC: ANHED 12:48 → ANH3MEDSUR 02-24 09:35
PROVIDERS: Physician Assistant; Admitting Provider Internal Medicine; Emergency Provider Emergency Medicine; PCP Family Medicine; Visit Provider Family Medicine
DX: U07.1 COVID-19 (principal); J12.82 Pneumonia due to coronavirus disease 2019; I26.99 Other pulmonary embolism without acute cor pulmonale; R06.02 Shortness of breath; G43.909 Migraine, unspecified, not intractable, without status migrainosus
CPT/HCPCS: 36415; 71046; 71275; 80048; 80053; 80076; 82728; 83615; 83735; 83880; 84484; 85025; 85380; 85610; 85730; 86140; 93005; 93970; 94618; 96365; 96367; 96372; 96375; 99291; A9270; C9803; G0378; G0379; J0131; J0456; J0696; J1650; Q9967; U0003; U0005